=== PATIENT | female | born 1985 | race Caucasian/White ===

== ENCOUNTER 2017-03-24 01:38 | Outpatient (CLI) | payer MEDICAID ==
[~2017-03-24 01:38] MED LIST: DOCU240C31 PO; IBUP-1222 PO; OXYC-302 PO; PRENATAL
== END 2017-03-24 03:00 | disposition home or self-care (01) ==
LOC: LDOP 01:38
PROVIDERS: ATTEND Obstetrics & Gynecology
DX: O36.8120 Decreased fetal movements, second trimester, not applicable or unspecified (principal); Z3A.26 26 weeks gestation of pregnancy
CPT/HCPCS: 59025; 99211; G0463

== ENCOUNTER 2017-06-25 14:01 | Outpatient (CLI) | payer MEDICAID ==
[~2017-06-25] VITALS: Ht 165.1 cm; Wt 70.0 kg
[2017-06-25 14:38] VITALS: BP 116/73
== END 2017-06-25 15:00 | disposition home or self-care (01) ==
LOC: LDOP 14:01
PROVIDERS: ATTEND Obstetrics & Gynecology
DX: O26.893 Other specified pregnancy related conditions, third trimester (principal); R10.2 Pelvic and perineal pain; Z3A.39 39 weeks gestation of pregnancy
CPT/HCPCS: 59025; 99211; G0463

== ENCOUNTER 2017-07-01 04:58 | Inpatient (IN) | payer MEDICAID ==
[~2017-07-01] VITALS: Ht 165.1 cm; Wt 67.1 kg
[2017-07-01] MEDS ORDERED: OXYTOCIN 30U/ 0.9% NaCL 500ML 500 ML IV ONE (05:06)
[2017-07-01] MEDS ORDERED: LACTATED RINGERS 1,000 ML IV SCH (05:06)
[2017-07-01] MEDS ORDERED: D5%-LACTATED RINGERS 1,000 ML IV SCH (05:06)
[2017-07-01] MEDS ORDERED: OXYTOCIN 30U/ 0.9% NaCL 500ML 500 ML ONE ×2 (05:11→10:29)
[2017-07-01] MEDS ORDERED: MISOPROSTOL 200 MCG TABLET ONE ×2 (05:11→08:48)
[2017-07-01] MEDS ORDERED: NEWBORN KIT ONE (05:11)
[2017-07-01] MEDS ORDERED: LIDOCAINE 1%, 20ML ONE (05:11)
[2017-07-01 05:29] VITALS: BP 122/64
[2017-07-01] MEDS ORDERED: METOCLOPRAMIDE 5 MG/ML, 2ML IVPush PRN (05:30)
[2017-07-01] MEDS ORDERED: FENTANYL PF 100 MCG/2ML IV PRN (05:30)
[2017-07-01] MEDS ORDERED: CALCIUM CARBONATE 500 MG TAB.CHEW PO PRN (05:30)
[2017-07-01] MEDS ORDERED: ONDANSETRON 2MG/ML, 2ML IVPush PRN (05:30)
[2017-07-01] MEDS ORDERED: FENTANYL PF 100 MCG/2ML IVPush PRN (05:30)
[2017-07-01 05:42] LABS: HEMATOCRIT 33.8 % (34.6-47.8); HEMOGLOBIN 11.4 g/dL (11.7-16.4); WHITE BLOOD COUNT 11.7 x10^3/uL (3.4-10)
[2017-07-01] MEDS ORDERED: FENTANYL/BUPIV./NS/PF 250 ML EPIDCONT ONE (05:48)
[2017-07-01] MEDS ORDERED: LIDOCAINE/PF 1.5%-EPI 1:200K, 30ML ONE (05:55)
[2017-07-01] MEDS: LACTATED RINGERS 1,000 ML IV SCH ×3 (06:41→22:41)
[2017-07-01] MEDS ORDERED: FENTANYL/BUPIV./NS/PF 250 ML EPIDCONT SCH (06:41)
[2017-07-01] MEDS ORDERED: LACTATED RINGERS 1,000 ML IVBOLUS PRN (07:00)
[2017-07-01] MEDS ORDERED: MISOPROSTOL 200 MCG TABLET PR ONE (09:00)
[2017-07-01] MEDS ORDERED: IBUPROFEN 600 MG TABLET ONE (09:25)
[2017-07-01] MEDS ORDERED: OXYcodone/APAP 5/325MG TABLET ONE (09:25)
[2017-07-01] MEDS: IBUPROFEN 600 MG TABLET PO PRN ×3 (09:27→20:23)
[2017-07-01] MEDS ORDERED: OXYcodone/APAP 5/325MG TABLET PO PRN (09:30)
[2017-07-01] MEDS ORDERED: METHYLERGONOVINE 0.2 MG/ML IM PRN (09:30)
[2017-07-01] MEDS ORDERED: ACETAMINOPHEN 325 MG TABLET PO PRN (09:30)
[2017-07-01] MEDS ORDERED: OXYTOCIN 10 UNITS/ML, 1ML IM PRN (09:30)
[2017-07-01] MEDS ORDERED: CARBOPROST TROMETHAMINE 250 MCG/ML, 1ML IM PRN (09:30)
[2017-07-01] MEDS ORDERED: MISOPROSTOL 200 MCG TABLET PR PRN (09:30)
[2017-07-01] MEDS: OXYTOCIN 30U/ 0.9% NaCL 500ML 500 ML IV SCH ×2 (10:34→19:06)
[2017-07-01] MEDS ORDERED: CEFAZOLIN PMX 1GM/50ML 50 ML ONE ×2 (10:43→11:02)
[2017-07-01] MEDS ORDERED: METHYLERGONOVINE 0.2 MG/ML IM ONE (10:43)
[2017-07-01] MEDS ORDERED: CEFAZOLIN PMX 2GM/50ML 50 ML IVPB SCH (11:00)
[2017-07-01 11:45] VITALS: BP 99/58
[2017-07-01] MEDS: ONDANSETRON 2MG/ML, 2ML IV PRN ×2 (12:13→22:28)
[2017-07-01] MEDS: OXYcodone/APAP 5/325MG TABLET PO PRN ×2 (15:04→20:23)
[2017-07-01 16:10] VITALS: BP 131/84
[2017-07-01 19:56] LABS: HEMATOCRIT 34.9 % (34.6-47.8); HEMOGLOBIN 11.7 g/dL (11.7-16.4); WHITE BLOOD COUNT 12.9 x10^3/uL (3.4-10)
[2017-07-01 20:00] VITALS: BP 109/72
[2017-07-01] MEDS: DOCUSATE 100 MG CAPSULE PO PRN (20:23)
[2017-07-01] MEDS ORDERED: DIPH,PERTUSS(ACELL),TET VAC/PF NC IM-VACC ONE (22:30)
[2017-07-01] MEDS: CEFAZOLIN 2,000 MG in DEXTROSE 5% 50 ML IVPB SCH (22:45)
[2017-07-02] MEDS: IBUPROFEN 600 MG TABLET PO PRN ×3 (02:19→17:06)
[2017-07-02] MEDS: OXYcodone/APAP 5/325MG TABLET PO PRN ×4 (02:19→17:06)
[2017-07-02 04:30] VITALS: BP 103/65
[2017-07-02] MEDS: OXYTOCIN 30U/ 0.9% NaCL 500ML 500 ML IV SCH ×2 (05:06→15:06)
[2017-07-02] MEDS: LACTATED RINGERS 1,000 ML IV SCH ×2 (06:41→14:41)
[2017-07-02 08:00] VITALS: BP_SYST 103; BP_SYST 110; BP_DIAS 59; BP_DIAS 73
[2017-07-02] MEDS ORDERED: PRENATAL VIT/IRON/FA 1 EACH TABLET PO SCH (09:00)
[2017-07-02] MEDS: DOCUSATE 100 MG CAPSULE PO PRN ×2 (09:23→17:11)
[2017-07-02] MEDS: ONDANSETRON 2MG/ML, 2ML IV PRN (11:04)
[2017-07-02] MEDS: CEFAZOLIN 2,000 MG in DEXTROSE 5% 50 ML IVPB SCH (11:05)
[2017-07-02] MEDS ORDERED: OXYC-302 PO (16:15)
== END 2017-07-02 18:31 | disposition home or self-care (01) | DRG 775 ==
LOC: LDOP 04:58 → LDIP 05:08 → 2NE 11:45 → 2NW 20:20
PROVIDERS: ADMIT Obstetrics & Gynecology; ATTEND Obstetrics & Gynecology
PROC: 10E0XZZ Delivery of Products of Conception, External Approach (ICD-10-PCS; principal; 2017-07-01)
DX: O99.344 Other mental disorders complicating childbirth (principal); D64.9 Anemia, unspecified; Z37.0 Single live birth; F41.9 Anxiety disorder, unspecified; O99.02 Anemia complicating childbirth; Z3A.40 40 weeks gestation of pregnancy
CPT/HCPCS: 36415; 85025; 86850; 86900; 88305; 90715; J0690; J2405; J3490; J2210; J2590; J3010; J7120